=== PATIENT | female | born 1970 | race Caucasian/White ===

== ENCOUNTER 2019-01-21 02:07 | Emergency (ER) | payer MEDICARE, BC ==
[2019-01-21] MEDS ORDERED: NORMAL SALINE 1000 ML 1,000 ML IV ONE (04:19)
[2019-01-21] MEDS ORDERED: METOCLOPRAMIDE HCL INJ/PF 10 MG/2 ML SDV IV ONE (04:19)
[2019-01-21] MEDS ORDERED: DIPHENHYDRAMINE HCL 50 MG/ML VIAL IV ONE (04:19)
[2019-01-21] MEDS ORDERED: KETOROLAC TROMETHAMINE INJ/PF 30 MG/1 ML SDV IV ONE (04:19)
[2019-01-21] MEDS ORDERED: MORPHINE SULFATE 10 MG/ML INJ IV ONE (04:19)
--- NOTE | 2019-01-21 04:24 | ER Document Report ---
ED Headache - General Chief Complaint: Headache Stated Complaint: HEADACHE Time Seen by Provider: 01/21/19 04:12 Mode of Arrival: Ambulatory Information source: Patient TRAVEL OUTSIDE OF THE [place] IN LAST 30 DAYS: No - HPI Patient complains to provider of: "Migraine" Notes: Patient is here with complaints of headache. The patient [place] from [place]. She has a long history of chronic headaches. 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 Occasionally she develops a worsening headache that turns into a migraine type headache. She states that the headache started 2 days ago and has slowly progressed into [place] grain. Is not sudden onset, thunderclap in nature. She denies any frequent head injury. She is not on blood thinning medications. She denies fever. She denies neck stiffness. She denies rash. She denies any blurred or loss of vision. No chest pain or shortness of breath. No unilateral numbness, tingling, weakness. Headache is worse with sound and light, nothing seems to make it better. She is tried her Maxalt, diclofenac. She takes Topamax daily. She denies any neck stiffness or rash. This feels like her typical headaches that she experiences frequently. She denies any other complaints at this time. - Related Data Allergies/Adverse Reactions: erythromycin base Allergy (Verified 01/21/19 02:14) Latex, Natural Rubber Allergy (Verified 01/21/19 02:14) Past Medical History - Social History Smoking Status: Unknown if Ever Smoked Family History: Reviewed & Not Pertinent Review of Systems - Review of Systems -: Yes All other systems reviewed and negative Physical Exam - Vital signs Vitals: Temp Pulse Resp BP Pulse Ox 97.9 F 100 20 123/95 H 98 01/21/19 02:18 01/21/19 02:18 01/21/19 02:18 01/21/19 02:18 01/21/19 02:18 - Notes Notes: GENERAL: alert, cooperative, nontoxic, no distress. HEAD: normocephalic, atraumatic EYES: conjunctiva pink without discharge, no external redness or swelling. Pupils are equal, round, reactive to light. EARS: no external swelling, no external redness NOSE: atraumatic, no external swelling MOUTH/THROAT: mucous membranes moist and pink, posterior pharynx without erythema, swelling, exudate. No trismus or drooling. NECK: soft, supple, full range of motion, no meningismus. CHEST: no distress, lungs clear and equal throughout. No wheezing, rales, rhonchi. CARDIAC: regular rate and rhythm, no murmur, normal capillary refill, normal pulses. No peripheral edema noted. BACK: full range of motion, no CVA tenderness. EXTREMITIES: full range of motion of all extremities. No redness, no swelling. NEURO: alert and oriented x 3, cranial nerves II through XII are grossly intact. Upper and lower extremities are equal throughout. Normal sensation. No focal deficits, full range of motion of all extremities. normal finger to nose. PYSCH: appropriate mood, affect. Patient is cooperative. SKIN: pink, warm, dry, no rash. Course - Re-evaluation Re-evalutation: 01/21/19 05:42 Patient states that her headache has completely resolved and she is ready for discharge home. Patient continues to have a nonfocal exam. The patient has a long history of migraines and this feels like her typical migraine type headaches. She is not on blood thinning medications. She has a nonfocal exam. No fever. No neck stiffness. No sign of meningitis. No sign of subarachnoid hemorrhage or other bleed. Patient looks well otherwise. She was given her typical migraine cocktail that she would normally get and states that her headache is completely resolved and she is ready for discharge home. Patient will be discharged home with instructions to follow-up for any worsening pain, fever, numbness, tingling, weakness, neck stiffness, persistent vomiting, or any further concerns. - Vital Signs Vital signs: Temp Pulse Resp BP Pulse Ox 97.9 F 100 20 123/95 H 98 01/21/19 02:18 01/21/19 02:18 01/21/19 02:18 01/21/19 02:18 01/21/19 02:18 Discharge - Discharge Clinical Impression: Migraine Condition: Stable Disposition: HOME, SELF-CARE Instructions: Headache ([facility]) Additional Instructions: Follow-up with your doctor as needed. Follow-up sooner for worsening pain, fever, numbness, tingling, weakness, persistent vomiting, or for any further concerns. Forms: Elevated Blood Pressure, Smoking Cessation Education Referrals: [facility] [Provider Group] - Follow up as needed
[2019-01-21 06:08] VITALS: BP 128/80
== END 2019-01-21 06:08 | disposition home or self-care (01) ==
LOC: ER 02:07
DX: G43.909 Migraine, unspecified, not intractable, without status migrainosus (principal); Z79.899 Other long term (current) drug therapy; Z91.040 Latex allergy status; Z88.1 Allergy status to other antibiotic agents
CPT/HCPCS: 99283; 96361; 96374; 96375; J1200; J1885; J2765; J2270; J7030